=== PATIENT | male | born 1955 | race Caucasian/White ===

== ENCOUNTER → 2017-07-10 | Outpatient (CLI) | payer OTHER ==
--- NOTE | 2017-07-10 08:49 | Diagnostic Imaging Report ---
PROCEDURE:UPPER GI W/AIR CONTR INDICATION:Intermittent chest pain. COMPARISON:None. TECHNIQUE:Routine double contrast upper GI performed with effervescent crystals, thin barium and thick barium. Fluoroscopy time: 1.3 minutes; Air kerma: 54.821 mGy FINDINGS: The esophagus, stomach and duodenal sweep demonstrate normal caliber, contour and distensibility. There is a small sliding-type hiatal hernia with intermittent mild gastroesophageal reflux. Gastroesophageal peristalsis unremarkable. CONCLUSION: Small sliding-type hiatal hernia with mild gastroesophageal reflux. Dictated by: Osvaldo Rendon M.D. on 07/10/2017 at 8:51 Electronically approved by: Osvaldo Rendon M.D. on 07/10/2017 at 8:51
== END ==
LOC: DX 06:26
PROVIDERS: ATTEND Internal Medicine Gastroenterology
DX: R07.89 Other chest pain (principal); R10.12 Left upper quadrant pain; Z12.11 Encounter for screening for malignant neoplasm of colon; E66.9 Obesity, unspecified; Z71.3 Dietary counseling and surveillance; Z87.891 Personal history of nicotine dependence
CPT/HCPCS: 74246